=== PATIENT | male | born 1990 | race Caucasian/White ===

== ENCOUNTER 2016-07-13 17:20 | Emergency (ER) | payer SELFPAY ==
[~2016-07-13] VITALS: Ht 185.4 cm; Wt 101.0 kg
[~2016-07-13 17:20] MED LIST: ALBU8.5H3 INH; LORA-441 PO; MECL25TA2 PO
[2016-07-13 17:45] VITALS: Ht 185.4 cm; Wt 101.0 kg
--- NOTE | 2016-07-13 19:04 | ERD ---
ER Documentation Chief Complaint Date/Time DATE: 07/13/16 TIME: 19:02 Chief Complaint nausea, palpitation x 1 day HPI 25 remote history of anxiety comes emergency department episode of palpitations , nausea and headache that started about an hour ago and has slowly resolved already. He states that this is happened in the past where he had anxiety, he says he decided to make sure he was okay. He has no shortness breath, chest pain. He denies dizziness. He denies fevers or chills ROS All systems reviewed and are negative except as per history of present illness. Medications Home Meds Active Scripts Lorazepam* (Ativan*) 0.5 Mg Tablet, 0.5 MG PO Q8, #4 TAB Prov:FELICITAS SERVIN PA-C 08/20/15 Meclizine Hcl* (Antivert*) 25 Mg Tablet, 25 MG PO Q6H Y for DIZZINESS for 5 Days , #20 TAB 0 Refills Prov:REBA FLOWERS PA-C 08/03/15 Albuterol Sulfate* (Proair HFA*) 8.5 Gm Hfa.aer.ad, 2 PUFF INH Q4, #1 INHALER Prov:ADOLFO KAY DO 06/06/15 Allergies Allergies: Coded Allergies: No Known Allergy (Unverified , 08/20/15) PMhx/Soc Medical and Surgical Hx: pt denies Medical Hx, pt denies Surgical Hx History of Surgery: No Anesthesia Reaction: No Hx Neurological Disorder: No Hx Respiratory Disorders: No Hx Cardiac Disorders: No Hx Psychiatric Problems: Yes (Anxiety) Hx Miscellaneous Medical Probl: Yes Hx Alcohol Use: No Hx Substance Use: No Hx Tobacco Use: No Smoking Status: Never smoker Physical Exam Vitals Vital Signs Date Time Temp Pulse Resp B/P Pulse Ox O2 Delivery O2 Flow Rate FiO2 07/13/16 17:45 98.4 112 18 134/75 100 Physical Exam General: Well-developed, well-nourished. The patient appears in no acute distress. HEENT: Head is normocephalic, atraumatic. No scleral icterus. Pupils are equal , round, and reactive. Oral mucous membranes are moist. No pharyngeal erythema. Neck: Supple. Nontender. Lungs: Clear to auscultation. Normal air movement. Heart: Regular rate and rhythm. S1 and S2 are normal. No murmurs, gallops, or rubs. Abdomen: Soft, nontender, nondistended. Bowel sounds are normoactive. Extremities: No clubbing or cyanosis. Normal pulses. Moving extremities x 4. No weakness. Neurologic: Alert and oriented 3. No focal deficits. Skin: Normal turgor. No rash or lesions. Results 24 hrs 12-lead EKG(interpreted by supervising physician): Dr Navas Rate/Rhythm: [Normal Sinus Rhythm], rate of 105 QRS, ST, T-waves: [No changes consistent w/ acute ischemia], no intervals, no dysrhythmias, no ectopy Impression: [No evidence of ischemia or arrhythmia] Procedures/MDM 25 yo male comes in with nausea, palpitations, anxiety that occurred about an hour ago and has slowly resolved. Patient at this time feels much better, his EKG is normal. There is no arrhythmia, no signs of dehydration, I doubt acute coronary syndrome, pulmonary embolus, thyroid storm. Patient will be discharged home, if he continues to have palpitations patient is to follow-up with cardiology as outpatient per Departure Diagnosis: Primary Impression: Palpitations Condition: Good Patient Instructions: Palpitations Additional Instructions: Call your primary care doctor TOMORROW for an appointment during the next 1-2 days.See the doctor sooner or return here if your condition worsens before your appointment time. MARILEE AMARO PA-C July 13, 2016 19:04
== END 2016-07-13 19:13 | disposition home or self-care (01) ==
LOC: FTE 17:20
DX: R00.2 Palpitations (principal)
CPT/HCPCS: 93005

== ENCOUNTER 2016-09-21 19:12 | Emergency (ER) | payer SELFPAY ==
[~2016-09-21] VITALS: Ht 180.3 cm; Wt 88.0 kg
[2016-09-21 19:15] VITALS: Ht 180.3 cm; Wt 88.0 kg
--- NOTE | 2016-09-21 20:06 | ERD ---
ER Documentation Chief Complaint Date/Time DATE: 09/21/16 TIME: 20:03 Chief Complaint low back pain with groin pain started yesterday (denies diff urinating) HPI This 25-year-old male patient presents to emergency department for evaluation of scrotal pain and swelling 2 months, sx intermitted, pain with sitting, unprotected sex with multiple partners, Patient denies nausea, vomiting, fever or chills patient denies dysuria, penile discharge, any ulcers lesion or rash ROS All systems reviewed and are negative except as per history of present illness. Medications Home Meds Active Scripts Ibuprofen* (Motrin*) 400 Mg Tab, 400 MG PO Q6, #30 TAB Prov:ALYSHADEBORAH 09/21/16 Lorazepam* (Ativan*) 0.5 Mg Tablet, 0.5 MG PO Q8, #4 TAB Prov:FELICITAS SERVIN PA-C 08/20/15 Meclizine Hcl* (Antivert*) 25 Mg Tablet, 25 MG PO Q6H Y for DIZZINESS for 5 Days , #20 TAB 0 Refills Prov:REBA FLOWERS PA-C 08/03/15 Albuterol Sulfate* (Proair HFA*) 8.5 Gm Hfa.aer.ad, 2 PUFF INH Q4, #1 INHALER Prov:ADOLFO KAY DO 06/06/15 Allergies Allergies: Coded Allergies: No Known Allergy (Unverified , 08/20/15) PMhx/Soc History of Surgery: Yes (RT LEG FX W/ SCREWS/RODS) Anesthesia Reaction: No Hx Neurological Disorder: No Hx Respiratory Disorders: No Hx Cardiac Disorders: No Hx Psychiatric Problems: Yes (Anxiety) Hx Miscellaneous Medical Probl: Yes Hx Alcohol Use: No Hx Substance Use: No Hx Tobacco Use: No Smoking Status: Never smoker Physical Exam Vitals Vital Signs Date Time Temp Pulse Resp B/P Pulse Ox O2 Delivery O2 Flow Rate FiO2 09/21/16 19:15 97.1 95 20 131/63 100 Physical Exam Const: Well-nourished well-appearing well-hydrated Head: Atraumatic Eyes: Normal Conjunctiva, PERRLA, EOMI ENT: Normal External Ears, Nose and Mouth. Mucous membranes moist Neck: Full range of motion..~ No meningismus. Resp: Respirations even and unlabored, no respiratory distress Cardio: Abd: Soft, non tender, non distended. Normal bowel sounds Male genitalia: Normal male anatomy, testicles distended, no tenderness or mass in epididymis, cremasteric reflexes normal. No palpable varicocele. No hernia. Blue dog sign negative. No discharge from penis, scrotal abscess mass or sore. Skin: Back: No midline or flank tenderness Ext: Neur: Awake and alert Psych: Normal Mood and Affect Results 24 hrs Laboratory Tests Test 09/21/16 23:15 Bedside Urine pH (LAB) 5.5 Bedside Urine Protein (LAB) 1+ Bedside Urine Glucose (UA) Negative Bedside Urine Ketones (LAB) 1+ Bedside Urine Blood Negative Bedside Urine Nitrite (LAB) Negative Bedside Urine Leukocyte Esterase (L Negative . Procedures/MDM PROCEDURE: Scrotal ultrasound CLINICAL INDICATION: Testicular pain and swelling. TECHNIQUE: A scrotal ultrasound was performed utilizing brown scale and Doppler imaging. COMPARISON: None. FINDINGS: The right testicle measures 5.1 x 2.2 x 4.0 cm. There is normal size and echogenicity and morphology of the right testicle with normal blood flow. The right epididymis measures 1.2 x 0.9 x 0.7 cm. Normal vascular flow is seen within the right epididymis. The left testicle measures 4.1 x 1.9 x 4.1 cm. There is normal size and echogenicity and morphology of the left testicle with normal blood flow. The left epididymis measures 08 x 0.6 x 0.7 cm. Normal vascular flow is seen within the left epididymis. There is a small right hydrocele. No varicocele is identified. IMPRESSION: 1. Normal appearance of the testicles and epididymides. 2. Small right hydrocele, nonspecific. Electronically viewed and signed by .Kory Kyle MD, on 09/21/2016 22:02 This pleasant 25-year-old male patient presents to emergency department for evaluation of scrotal pain. Pain is been intermittent 2 months. Any obvious swelling of testicles but reports that his testicles feel swollen and has pain with sitting. Little suspicion for testicular torsion, hernia, or testicular tumor. No suspicion for appendicitis or prostatitis. Urinalysis negative for any evidence of infection, urine will be sent for chlamydia and gonorrhea patient will be notified for positive test results only. Scrotal ultrasound impression normal appearance of the test to Cobb and epididymitis, small right hydrocele nonspecific. This case was discussed with supervising physician Dr. Kay patient will be discharged home with Motrin 400 mg 4 every 6 hours as needed pain. Follow-up with primary physician for referral to urologist. Patient to return to emergency department for increased pain, nausea, or vomiting. I feel the patient is stable for discharge at this time. I have discussed results, examination findings, the treatment plan with the patient and family present prior to discharge. Indications for emergent reevaluation, side effects of medication were also discussed. All questions were answered. Patient verbalizes understanding and agrees with plan of care. Departure Diagnosis: Primary Impression: Hydrocele in adult Condition: Good Patient Instructions: Hydrocele, Type Not Specified Referrals: [facility] Additional Instructions: [facility] you [facility] or your care today. Please ask your nurse or provider if you have questions about your care today and do not leave until all your questions have been answered. Please use any medications given as directed and follow-up with your doctor (or the doctor you were referred to) in the next 2-3 days. If you do not have a primary care doctor you may follow up at [facility] (listed below). You may also use motrin and tylenol as needed for fever and/or pain unless instructed otherwise by your provider or nurse. Indications for more urgent follow-up have been discussed, but you may return to the Emergency Department at ANY time for any worrisome or worsening symptoms. If you have abdominal pain, please know that no test or exam you received is perfect and you should follow up within 8 hours for continued pain. If you had any imaging studies today, such as an X-Ray or CT Scan, these studies will be reviewed later by a radiologist. You will be called if there are important findings that were not identified today, so make sure the contact information you provided at registration is correct. If you received any narcotic pain control medicine today, such as Vicodin, Morphine or Dilaudid, your coordination and judgment may be affected for a number of hours. Please do not drive or operate heavy machinery, and you may want someone to assist you at home. If you were given a prescription for narcotic medication, be aware that it is very addictive- use sparingly and only if necessary. DEBORAH ENCARNACION Sep 21, 2016 20:06
--- NOTE | 2016-09-21 22:02 | RADRPT ---
PROCEDURE: Scrotal ultrasound CLINICAL INDICATION: Testicular pain and swelling. TECHNIQUE: A scrotal ultrasound was performed utilizing brown scale and Doppler imaging. COMPARISON: None. FINDINGS: The right testicle measures 5.1 x 2.2 x 4.0 cm. There is normal size and echogenicity and morphology of the right testicle with normal blood flow. The right epididymis measures 1.2 x 0.9 x 0.7 cm. Nor mal vascular flow is seen within the right epididymis. The left testicle measures 4.1 x 1.9 x 4.1 cm. There is normal size and echogenicity and morphology of the left testicle with normal blood flow. The left epididymis measures 08 x 0.6 x 0.7 cm. Normal vascular flow is seen within the left epididymis. There is a small right hydrocele. No varicocele is identified. IMPRESSION: 1. Normal appearance of the testicles and epididymides. 2. Small right hydrocele, nonspecific. RPTAT: HTAR .Kory Kyle MD, MD Date Time Electronically viewed and signed by .Kory Kyle MD, on 09/21/2016 22:02 .R/
[2016-09-21 23:09] LABS: URINE BLOOD (Dip) POC Negative (NEGATIVE)
[2016-09-21] MEDS ORDERED: IBUP400T22 PO (23:37)
[2016-09-21 23:50] VITALS: BP 133/65; PULSE 64; RESP 16; TEMP 98.6
[2016-09-23 16:09] LABS: URINE BLOOD (Dip) POC Negative (NEGATIVE)
== END 2016-09-21 23:51 | disposition home or self-care (01) ==
LOC: FTE 19:12
DX: N43.3 Hydrocele, unspecified (principal)
CPT/HCPCS: 76870; 81003; 87086; 87591

== ENCOUNTER 2016-10-02 00:25 | Emergency (ER) | payer SELFPAY ==
[~2016-10-02] VITALS: Ht 185.4 cm; Wt 86.0 kg
[~2016-10-02 00:25] MED LIST changes: +IBUP400T22 PO
[2016-10-02 00:29] VITALS: Ht 185.4 cm; Wt 86.0 kg
[2016-10-02] MEDS ORDERED: ALPRAZOLAM 0.25 MG TAB PO ONE (01:00)
--- NOTE | 2016-10-02 01:32 | ERD ---
ER Documentation Chief Complaint Date/Time DATE: 10/02/16 TIME: 01:29 Chief Complaint HEART BEATING FAST, LIGHT HEADED. SMOKED HOOKAH EARLIER TODAY. HPI This 25-year-old male presents emergency room for heart beating fast after he was smoking cocaine drinking red bull today. He felt somewhat lightheaded. First is stated that he did not have any caffeine. It was then clarified that he did not believe that sugar-free red bull had caffeine in it. He could feel his heart beating fast but had no chest pain. He has no shortness of breath. ROS All systems reviewed and are negative except as per history of present illness. Medications Home Meds Active Scripts Ibuprofen* (Motrin*) 400 Mg Tab, 400 MG PO Q6, #30 TAB Prov:ALYSHA,MELODY 09/21/16 Lorazepam* (Ativan*) 0.5 Mg Tablet, 0.5 MG PO Q8, #4 TAB Prov:FELICITAS SERVIN PA-C 08/20/15 Meclizine Hcl* (Antivert*) 25 Mg Tablet, 25 MG PO Q6H Y for DIZZINESS for 5 Days , #20 TAB 0 Refills Prov:REBA FLOWERS PA-C 08/03/15 Albuterol Sulfate* (Proair HFA*) 8.5 Gm Hfa.aer.ad, 2 PUFF INH Q4, #1 INHALER Prov:ADOLFO KAY DO 06/06/15 Allergies Allergies: Coded Allergies: No Known Allergy (Unverified , 08/20/15) PMhx/Soc History of Surgery: Yes (RT LEG FX W/ SCREWS/RODS) Anesthesia Reaction: No Hx Neurological Disorder: No Hx Respiratory Disorders: No Hx Cardiac Disorders: No Hx Psychiatric Problems: Yes (Anxiety) Hx Miscellaneous Medical Probl: Yes Hx Alcohol Use: No Hx Substance Use: Yes (hookah) Hx Tobacco Use: No Smoking Status: Current some day smoker Physical Exam Vitals Vital Signs Date Time Temp Pulse Resp B/P Pulse Ox O2 Delivery O2 Flow Rate FiO2 10/02/16 00:29 96.7 124 17 127/73 99 Physical Exam Const: [] No distress Head: Atraumatic Eyes: Normal Conjunctiva, EOMI, PRL ENT: Normal External Ears, Nose and Mouth. Neck: Full range of motion..~ No meningismus. Resp: Clear to auscultation bilaterally Cardio: Regular tachycardia no murmurs Skin: No petechiae or rashes Back: No midline or flank tenderness Ext: No cyanosis, or edema Neur: Awake and alert and oriented 3, no focal deficits Psych: Normal Mood and Affect Results 24 hrs Current Medications Medications (Trade) Dose Ordered Sig/Jenny Route PRN Reason Start Time Stop Time Status Last Admin Dose Admin Alprazolam (Xanax) 0.5 mg ONCE ONCE PO 10/02/16 01:00 10/02/16 01:01 DC 10/02/16 00:51 Procedures/MDM Combined caffeine and nicotine use with resulting tachycardia. No signs of any cardiac dysfunction. Heart rate easily explained by ingestion of substances. Patient is not intoxicated. Going to discharge with primary care follow-up and return precautions to ER. EKG interpretation: Sinus tachycardia rate of 119, normal axis, normal intervals , no ST or T-wave changes concerning for acute ischemia. EKG #2 interpretation: Sinus tachycardia rate of 103, normal axis, normal intervals, no ST or T-wave changes concerning for acute ischemia. Chronic monitor interpretation: Mild sinus tachycardia without other arrhythmia followed by normal sinus rhythm. Departure Diagnosis: Primary Impression: Caffeine use Additional Impression: Tachycardia Condition: Stable Patient Instructions: Sinus Tachycardia Referrals: [facility] YOU HAVE RECEIVED A MEDICAL SCREENING EXAM AND THE RESULTS INDICATE THAT YOU DO NOT HAVE A CONDITION THAT REQUIRES URGENT TREATMENT IN THE EMERGENCY DEPARTMENT. FURTHER EVALUATION AND TREATMENT OF YOUR CONDITION CAN WAIT UNTIL YOU ARE SEEN IN YOUR DOCTORS OFFICE WITHIN THE NEXT 1-2 DAYS. IT IS YOUR RESPONSIBILITY TO MAKE AN APPOINTMENT FOR FOLOW-UP CARE. IF YOU HAVE A PRIMARY DOCTOR --you should call your primary doctor and schedule an appointment IF YOU DO NOT HAVE A PRIMARY DOCTOR YOU CAN CALL OUR PHYSICIAN REFERRAL HOTLINE AT IF YOU CAN NOT AFFORD TO SEE A PHYSICIAN YOU CAN CHOSE FROM THE FOLLOWING [facility] [id number] [place] [facility] [address] [facility] [address] [facility] [address] [facility] [address] [facility]. [facility] [address] Additional Instructions: Call your primary care doctor TOMORROW for an appointment during the next 1-2 days.See the doctor sooner or return here if your condition worsens before your appointment time. RUSSELL AKHTAR DO Oct 02, 2016 01:32
== END 2016-10-02 02:14 | disposition home or self-care (01) ==
LOC: E/R 00:25
DX: F15.90 Other stimulant use, unspecified, uncomplicated (principal); F17.210 Nicotine dependence, cigarettes, uncomplicated; R94.31 Abnormal electrocardiogram [ECG] [EKG]
CPT/HCPCS: 93005

== ENCOUNTER 2016-12-09 21:21 | Emergency (ER) | payer SELFPAY ==
[~2016-12-09] VITALS: Ht 177.8 cm; Wt 86.4 kg
[2016-12-09 21:23] VITALS: Ht 177.8 cm; Wt 86.4 kg
[2016-12-09] MEDS ORDERED: SOD CHLORIDE 0.9% 1,000 ML IV STA ×2 (21:33→22:25)
[2016-12-09] MEDS ORDERED: ADENOSINE 6 ML ONE (21:48)
[2016-12-09] MEDS ORDERED: LORAZEPAM 2 MG INJ IV ONE ×2 (22:00→22:30)
[2016-12-09] MEDS ORDERED: ADENOSINE 6 MG INJ IV ONE ×2 (22:00→22:30)
[2016-12-09 22:05] LABS: BASOPHIL # 0.1 10^3/ul (0.0-0.1); BASOPHILS % 0.9 % (0.0-2.0); EOSINOPHILS # 0.1 10^3/ul (0.0-0.5); EOSINOPHILS % 0.8 % (0.0-7.0); HEMATOCRIT 49.1 % (42.0-52.0); HEMOGLOBIN 16.6 g/dl (14.0-18.0); LYMPHOCYTES # 4.6 10^3/ul (0.8-2.9); LYMPHOCYTES % 38.5 % (15.0-51.0); MEAN CORPUSCULAR HEMOGLOBIN 27.6 pg (29.0-33.0); MEAN CORPUSCULAR HGB CONC 33.8 g/dl (32.0-37.0); MEAN CORPUSCULAR VOLUME 81.6 fl (82.0-101.0); MEAN PLATELET VOLUME 11.2 fl (7.4-10.4); MONOCYTE # 0.6 10^3/ul (0.3-0.9); MONOCYTES % 4.8 % (0.0-11.0); NEUTROPHIL # 6.6 10^3/ul (1.6-7.5); NEUTROPHILS % 54.7 % (39.0-77.0); PLATELET COUNT 362 10^3/UL (140-415); RED BLOOD COUNT 6.02 10^6/ul (4.70-6.10)
[2016-12-09 22:26] LABS: ANION GAP 19 (8-16); BLOOD UREA NITROGEN 13 mg/dl (7-20); CALCIUM 9.8 mg/dl (8.4-10.2); CARBON DIOXIDE 27 mmol/L (21-31); CHLORIDE 101 mmol/L (97-110); GLUCOSE 123 mg/dl (70-220); POTASSIUM 3.4 mmol/L (3.5-5.1); SODIUM 144 mmol/L (135-144)
[2016-12-09 22:35] LABS: B-TYPE NATRIURETIC PEPTIDE 16 PG/ML (0-125)
--- NOTE | 2016-12-09 22:56 | RADRPT ---
PROCEDURE: XR Chest. CLINICAL INDICATION: Chest pain TECHNIQUE: 2 frontal views of the chest. COMPARISON: None. FINDINGS: The cardiomediastinal silhouette is within normal limits. The lungs are clear. No signs of pleural f luid or pneumothorax are seen. The osseous structures and soft tissues are unremarkable. IMPRESSION: No evidence for active cardiopulmonary disease. RPTAT: [facility] Physician Parish Date Time Electronically viewed and signed by Physician Parish on 12/09/2016 22:56 RS/
[2016-12-09 23:08] LABS: TROPONIN-I < 0.012 ng/ml (0.00-0.12)
[2016-12-09 23:59] VITALS: BP 110/48; PULSE 128; RESP 14; TEMP 98.7
[2016-12-10] MEDS ORDERED: DILTIAZEM 25 MG INJ IV ONE
[2016-12-10 00:05] LABS: BARBITURATES Negative (NEGATIVE); BENZODIAZEPINES Negative (NEGATIVE); CANNABINOIDS Positive (NEGATIVE); COCAINE Negative (NEGATIVE); OPIATES Negative (NEGATIVE)
--- NOTE | 2016-12-10 00:13 | ERD ---
ER Documentation Chief Complaint Date/Time DATE: 12/10/16 TIME: 00:10 Chief Complaint palpitation 20 min. ago after he was given "candy sour patch" by a friend HPI This is a 26-year-old male with a history of anxiety, and previous palpitations who presents to the emergency room for evaluation of heart palpitations. He states that he was having nervous thoughts and thought his heart rate beating fast. The patient was given adenosine prior to my evaluation of this patient and this patient is not complaining of any chest pain or shortness of breath at this time ROS All systems reviewed and are negative except as per history of present illness. Medications Home Meds Active Scripts Ibuprofen* (Motrin*) 400 Mg Tab, 400 MG PO Q6, #30 TAB Prov:DEBORAH ENCARNACION 09/21/16 Lorazepam* (Ativan*) 0.5 Mg Tablet, 0.5 MG PO Q8, #4 TAB Prov:FELICITAS SERVIN PA-C 08/20/15 Meclizine Hcl* (Antivert*) 25 Mg Tablet, 25 MG PO Q6H Y for DIZZINESS for 5 Days , #20 TAB 0 Refills Prov:REBA FLOWERS PA-C 08/03/15 Albuterol Sulfate* (Proair HFA*) 8.5 Gm Hfa.aer.ad, 2 PUFF INH Q4, #1 INHALER Prov:ADOLFO KAY DO 06/06/15 Allergies Allergies: Coded Allergies: No Known Allergy (Unverified , 08/20/15) PMhx/Soc History of Surgery: Yes (RT LEG FX W/ SCREWS/RODS) Anesthesia Reaction: No Hx Neurological Disorder: No Hx Respiratory Disorders: No Hx Cardiac Disorders: No Hx Psychiatric Problems: Yes (Anxiety) Hx Miscellaneous Medical Probl: Yes Hx Alcohol Use: Yes (SOCIALLY) Hx Substance Use: No Hx Tobacco Use: Yes (HOOKAH) Smoking Status: Current some day smoker Physical Exam Vitals Vital Signs Date Time Temp Pulse Resp B/P Pulse Ox O2 Delivery O2 Flow Rate FiO2 12/09/16 23:59 98.7 128 14 110/48 100 Room Air 12/09/16 23:00 97.8 133 20 117/37 100 Room Air 12/09/16 22:15 97.8 139 18 123/66 100 Nasal Cannula 2.0 12/09/16 21:45 Nasal Cannula 2 12/09/16 21:45 97.8 155 17 155/80 100 Nasal Cannula 2.0 12/09/16 21:23 97.8 173 20 182/66 99 Physical Exam INITIAL VITAL SIGNS: Reviewed by me GENERAL: The patient is well developed and appropriate for usual state of health in no apparent distress HEENT: Pupils equal, round, and reactive to light. EOMI. There is no scleral icterus. NECK: C-spine is soft and supple, there is no meningismus. There is no cervical lymphadenopathy. LUNGS: Clear to auscultation bilaterally. There are no rales, wheezes or rhonchi. HEART: Tachycardic, no murmurs, clicks, rubs or gallops. ABDOMEN: Soft, non-tender, non-distended. There are bowel sounds in all four quadrants. No rebound or guarding. EXTREMITIES: There is no peripheral cyanosis or edema. No focal swelling or erythema. NEUROLOGICAL: The patient moves all four extremities with 5/5 strength. Cranial nerves II - XII are intact. Normal gait. Alert and oriented SKIN: There is no apparent rash or petechiae. HEME/LYMPHATIC: There is no evidence of excessive bruising or lymphedema. PSYCHIATRIC: The patient does hear mildly anxious Result Diagram: 12/09/16213912/09/162139 Results 24 hrs Laboratory Tests Test 12/09/16 21:40 12/09/16 22:45 White Blood Count 12.010^3/ul Red Blood Count 6.0210^6/ul Hemoglobin 16.6g/dl Hematocrit 49.1% Mean Corpuscular Volume 81.6fl Mean Corpuscular Hemoglobin 27.6pg Mean Corpuscular Hemoglobin Concent 33.8g/dl Red Cell Distribution Width 13.0% Platelet Count 79317^3/UL Mean Platelet Volume 11.2fl Neutrophils % 54.7% Lymphocytes % 38.5% Monocytes % 4.8% Eosinophils % 0.8% Basophils % 0.9% Nucleated Red Blood Cells % 0.0/100WBC Neutrophils # 6.610^3/ul Lymphocytes # 4.610^3/ul Monocytes # 0.610^3/ul Eosinophils # 0.110^3/ul Basophils # 0.110^3/ul Nucleated Red Blood Cells # 0.010^3/ul Sodium Level 144mmol/L Potassium Level 3.4mmol/L Chloride Level 101mmol/L Carbon Dioxide Level 27mmol/L Anion Gap 19 Blood Urea Nitrogen 13mg/dl Creatinine 1.20mg/dl Glucose Level 123mg/dl Calcium Level 9.8mg/dl Troponin I < 0.012ng/ml B-Type Natriuretic Peptide 16PG/ML Urine Opiates Screen Negative Urine Barbiturates Negative Urine Amphetamines Screen Negative Urine Benzodiazepines Screen Negative Urine Cocaine Screen Negative Urine Cannabinoids Positive Current Medications Medications (Trade) Dose Ordered Sig/Jenny Route PRN Reason Start Time Stop Time Status Last Admin Dose Admin Sodium Chloride (NS) 1,000 ml @ 1,000 mls/hr Q1H STAT IV 12/09/16 21:33 12/09/16 22:32 DC 12/09/16 21:33 Adenosine 6 mg 6 mg ONCE ONCE IV 12/09/16 22:00 12/09/16 22:01 DC 12/09/16 21:48 Adenosine (Adenosine) 6 ml @ STK-MED ONCE .ROUTE 12/09/16 21:48 12/09/16 21:49 DC Lorazepam (Ativan) 1 mg ONCE ONCE IV 12/09/16 22:00 12/09/16 22:01 DC 12/09/16 22:10 Adenosine 12 mg 12 mg ONCE ONCE IV 12/09/16 22:30 12/09/16 22:31 DC 12/09/16 21:54 Sodium Chloride (NS) 1,000 ml @ 1,000 mls/hr Q1H STAT IV 12/09/16 22:25 12/09/16 23:24 DC 12/09/16 22:31 Lorazepam (Ativan) 1 mg ONCE ONCE IV 12/09/16 22:30 12/09/16 22:31 DC 12/09/16 22:31 Diltiazem HCl (Cardizem Iv) 10 mg ONCE ONCE IV 12/10/16 00:00 12/10/16 00:01 DC 12/09/16 23:46 Procedures/MDM EKG: Rate/Rhythm: Sinus tachycardia heart rate 153 QRS, ST, T-waves: [No changes consistent w/ acute ischemia] Impression: Sinus tachycardia EKG: Rate/Rhythm: Sinus tachycardia heart rate 133 QRS, ST, T-waves: [No changes consistent w/ acute ischemia] Impression: Sinus tachycardia Chest X-ray 1V Interpreted by me: Soft Tissue: No acute abnormalities Bones: No acute abnormalities Mediastinum/Cardiac Silhouette/Lungs: [No acute abnormalities] This 26-year-old male presents to the ER for evaluation of heart palpitations. He did appear to be anxious on my examination and was tachycardic. The patient was given adenosine prior to my evaluation of this patient however the patient was not in SVT. Patient was given 2 mg of Ativan, 2 L of IV fluid and his heart rate is 140. He was then given 10 mg of Cardizem his heart rate is 130. The patient is hemodynamically stable at this time. He has had previous visits to the emergency room for palpitations after he drink caffeine. The patient does state that he drank "half of a monster". The patient likely has palpitations secondary to caffeine ingestion. The patient will be discharged with a referral for our community clinics to get established with a chairlift operator for outpatient Holter monitor. Departure Diagnosis: Primary Impression: Palpitations Additional Impression: Anxiety Condition: Stable ADOLFO KAY DO Dec 10, 2016 00:13
== END 2016-12-10 00:44 | disposition home or self-care (01) ==
LOC: E/R 21:21
DX: R00.2 Palpitations (principal); F41.9 Anxiety disorder, unspecified; F17.210 Nicotine dependence, cigarettes, uncomplicated
CPT/HCPCS: 36415; 71010; 80048; 80307; 83880; 84484; 85025; 96374; 96375; 96376; 99285; J0153; J2060; J7030

== ENCOUNTER 2017-03-18 04:01 | Emergency (ER) | END 2017-03-18 07:14 | disposition home or self-care (01) ==

== ENCOUNTER 2017-07-25 00:49 | Emergency (ER) | END 2017-07-25 03:12 | disposition home or self-care (01) ==

== ENCOUNTER 2017-10-10 15:01 | Emergency (ER) | END 2017-10-10 16:37 | disposition home or self-care (01) ==

== ENCOUNTER 2017-11-20 12:05 | Emergency (ER) | END 2017-11-20 14:00 | disposition home or self-care (01) ==